=== PATIENT | female | born 2000 | race Caucasian/White ===

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

== ENCOUNTER 2022-11-08 07:46 | Emergency (ER) | payer SELFPAY ==
[2022-11-08 07:47] VITALS: BP 127/66; PULSE 91; RESP 16; TEMP 36.4; O2SAT 100; BMI 21.2
--- NOTE | 2022-11-08 07:59 | EKG12_ITS ---
Test Reason : SOB Blood Pressure : / mmHG Vent. Rate : 083 BPM Atrial Rate : 083 BPM P-R Int : 140 ms QRS Dur : 072 ms QT Int : 374 ms P-R-T Axes : -65 076 035 degrees QTc Int : 439 ms Unusual P axis, possible ectopic atrial rhythm Abnormal ECG Confirmed by REGINE ESCALERA, MARGY ([id number]), video effects editor FLORENCIO MURILLO ([id number]) on 11/11/2022 11:17:23 AM Referred By: Confirmed By:MARGY WEINER MD
--- NOTE | 2022-11-08 08:00 | RAD_ITS ---
STUDY: X-RAY CHEST REASON FOR EXAM: Female, 22 years old. Chest pain TECHNIQUE: PA and lateral views of the chest. COMPARISON: None. FINDINGS: The lungs are clear and expanded. There is no demonstrated pleural abnormality. Normal size heart. Normal mediastinum and tessa. Normal visualized pulmonary arteries. Normal visualized aortic arch and descending thoracic aorta. Normal visualized thoracic spine. Normal visualized ribs, clavicles, and shoulders. There is no demonstrated abnormality of the visualized soft tissue structures of the upper abdomen. RAD/Chest PA and Lateral IMPRESSION: Normal x-ray examination of the chest. Electronically Signed: Kevin De León MD at 8:54 EDT ,
--- NOTE | 2022-11-08 08:00 | ED.VIS.DYS ---
HPI History of Present Illness Chief Complaint: Shortness of Breath Informant: patient Narrative Narrative: Presents chest pain and dyspnea awakening at 3 AM. Pain with deep breaths. Seasonal allergies with increasing sinus congestion. Vapes, no recent travel surgeries or immobilizations. No history of PE or DVT. Denies family history of heart disease at a young age. Denies hypertension diabetes or hyperlipidemia. Denies history of similar. Allergies to amoxicillin and Zithromax. PE Risk Factors: Negative for OCP + Smoking + > 35, Prior DVT or PE, Recent immobilization, Recent surgery or Recent travel Prior similar symptoms: No PFSH PFSH Home Medications NK 03/16/21 [History Last Taken Unknown] Allergy/AdvReac Type Severity Reaction Status Date / Time amoxicillin Allergy Swelling Verified 11/08/22 07:47 azithromycin Allergy Swelling Verified 11/08/22 07:47 Social History Smoking Status: Never smoker alcohol intake: never ROS ROS ED Constitutional Constitutional ED: Denies chills, fever(s) or sweats Eyes Eyes: Denies change in vision ENT ENT ED: Denies dysphagia or sore throat Cardiovascular Cardiovascular: Reports chest pain; Denies leg edema, palpitations or racing heartbeat Respiratory/Chest Respiratory/Chest: Reports dyspnea; Denies cough or dyspnea on exertion Gastrointestinal Gastrointestinal: Denies abdominal pain, diarrhea, nausea or vomiting Genitourinary Genitourinary ED: Denies dysuria, hematuria or urinary frequency Musculoskeletal Musculoskeletal: Denies back pain, extremity pain or neck pain Integumentary Denies rash or wounds Neurologic Neurologic: Denies headache(s), paresthesias or weakness EXAM Physical Exam Const Vital Signs: 11/08/22 07:47 11/08/22 08:00 11/08/22 09:32 Temperature 97.6 F L Temperature Source Temporal Pulse Rate 91 Respiratory Rate 16 Respiratory Effort Non-Labored Short of Breath Respiratory Depth Normal Respiratory Pattern Normal Blood Pressure 127/66 H Blood Pressure Mean 86 Pulse Ox 100 95 Oxygen Delivery Method Room Air Positive well nourished and well developed General Appearance ED: well developed and NAD HEENT Reports moist mucous membranes normocephalic and atraumatic Eyes PERRL, EOMs intact bilaterally and conjunctivae normal General Eye ED: Yes normal appearance of both eyes Neck no lymphadenopathy and supple General: Negative for tenderness Chest Wall Chest: Negative for tenderness Resp normal respiratory effort and normal air movement Effort and Inspection: symmetric chest movement; Negative for respiratory distress Cardio regular rate, regular rhythm and no murmurs Peripheral Pulses: pulses 2+ throughout GI normal to inspection, nondistended, normoactive bowel sounds and non-tender Palpation: Negative for guarding or rebound tenderness present Back/Spine no CVA tenderness and no thoracic nor lumbar tenderness Extremity normal to inspection General Extremety ED: Negative for edema or tenderness General Extremity: Negative for edema Neuro oriented x3 and no sensory deficits noted Sensorium / Orientation: awake and alert Skin no rashes or lesions noted and no wounds MDM MDM MDM Narrative Medical decision making narrative: Interventions / MDM: Differential diagnosis: Pleurisy, atypical chest pain Diagnosis considered but do not suspect: Pulmonary embolism however PERC criteria negative. My EKG interpretation: Sinus rhythm rate of 83, no ST or T wave changes. Imaging independently reviewed and interpreted by myself: 2 view chest x-ray: No acute process also by radiology. External documents reviewed: N/A Test considered but not ordered:N/A ED course: Patient presented pleuritic symptoms denies cough. No PE risk factors. PERC criteria negative. EKG normal 2 view chest x-ray negative. She is treated with Motrin. Re-evaluation: stable, symptoms controlled. Discussed withholding from vaping and monitoring symptoms she will continue ibuprofen. Outpatient follow-up with PCP with strict return precautions. All questions were answered. Disposition discussed with patient/family/significant other: Patient Case discussed with consulting clinician: N/A This note was generated with [employer] dictation software. It may contain incorrect words, spelling, and punctuation that were not noted in checking the note before signing. Radiography Diagnostic Testing: Clinical Impression(s) from Imaging Studies Chest X-Ray 11/08/22 08:00 IMPRESSION: Normal x-ray examination of the chest. Electronically Signed: Kevin De León MD at 8:54 EDT , Discharge Plan Triage Chief Complaint: Shortness of Breath ED Provider: Jovanni Byrne Dx/Rx/DC Orders Clinical Impression: Engages in vaping, Chest pain, pleuritic Instructions: ED Pleurisy Prescriptions: No Action NK Stand Alone Forms: ED Work / School Excuse Primary Care Provider: Deepa Garcia Referrals: Deepa Garcia, [Primary Care Provider] - 1 Week if not improving Town Doctor,Out of [Non-Staff] - Activity Restrictions/Additional Instructions: Normal EKG and chest x-ray. Use ibuprofen every 6 hours as needed. Stop vaping. Monitor symptoms progression or worsens to return to the ED otherwise follow-up with your doctor. Disposition Disposition: Home, Self Care
[2022-11-08] MEDS: Ibuprofen 600 MG Tablet PO (08:31)
[2022-11-08 09:32] VITALS: O2SAT 95
== END 2022-11-08 09:35 | disposition home or self-care (01) ==
PROVIDERS: Emergency Provider Emergency Medicine; Visit Provider Emergency Medicine
DX: R07.81 Pleurodynia (principal); R06.02 Shortness of breath
CPT/HCPCS: 71046; 93005; 99282